=== PATIENT | female | born 1985 | race Hispanic/Latino ===

== ENCOUNTER 2016-10-23 01:16 | Inpatient (IN) | payer MEDICAID ==
[~2016-10-23] VITALS: Ht 162.6 cm; Wt 84.8 kg
[~2016-10-23 01:16] MED LIST: ONDA4TAB12 PO; ONDA8TAB10 PO
[2016-10-23] MEDS ORDERED: Sodium Chloride LOK Flush 10 mL Syringe IVFLUSH PRN ×2 (07:35→07:55)
[2016-10-23] MEDS ORDERED: Hemorrhage Kit, Post Partum XX ONE ×3 (07:35→23:00)
[2016-10-23] MEDS ORDERED: Oxytocin 10 Unit/mL Inj IM PRN ×3 (07:35→23:00)
[2016-10-23] MEDS ORDERED: Oxytocin 30 Units/500 mL LR 30 UNITS in IV Premix 1 EACH IV PRN ×3 (07:35→23:00)
[2016-10-23] MEDS ORDERED: Penicillin G K Inj 5,000,000 UNITS in Dextrose 5% Minibag Plus 100 ML IV ONE (07:35)
[2016-10-23] MEDS ORDERED: Methylergonovine 0.2 mg/mL Inj IM PRN ×3 (07:35→23:00)
[2016-10-23] MEDS ORDERED: Carboprost 250 mCg/mL Inj IM PRN ×3 (07:35→23:00)
[2016-10-23] MEDS ORDERED: Lactated Ringer's 1,000 ML IV PRN (07:52)
[2016-10-23] MEDS ORDERED: Atropine 1 mg/10 mL (Code) Syringe IVPUSH PRN ×2 (07:55→17:20)
[2016-10-23] MEDS ORDERED: Lactated Ringer's 1,000 ML IV SCH ×3 (07:55→22:56)
[2016-10-23] MEDS ORDERED: Lactated Ringer's 500 ML IV ONE ×2 (07:55→17:18)
[2016-10-23] MEDS ORDERED: EPHEDrine Sulfate 50 mg/mL Inj IVPUSH PRN ×2 (07:55→17:20)
[2016-10-23] MEDS ORDERED: Ondansetron 2 mg/mL 2 mL Inj IVPUSH PRN ×2 (07:55→17:20)
[2016-10-23] MEDS ORDERED: fentaNYL 2 mCg/mL-Bupiv 0.125% 100 ML EPIDURAL SCH ×2 (07:55→17:20)
--- NOTE | 2016-10-23 08:16 | PCM.HPOB ---
Subjective Referring Provider: Admitting Physician: Lolita Fay MD Primary Care Physician: Lolita Fay MD Attending Physician: Lolita Fay MD Chief Complaint The patient is 31-year-old who presents for labor induction at 41 weeks gestational age. History of Present History of Present Illness The patient is at 41 weeks by last US on 03/08/16 with history of previous induced uncomplicated vaginal delivery four years ago. She presents for scheduled induction of labor. She has been feeling well. She started feeling some contractions since arrival at the [facility]. Normal movements, FHR 120-150. OB History: Term Obstetrical Complications: None Past Medical History Obstetrical History: 31-year-old female at 41 weeks GA presents for labor induction. Varicella nonimmune, IgM positive 02/2016; no immunoglobulin. Reports h/o chicken pox as a child, denies known exposure recently to chicken pox. Prediabetes, elevated initial Hgb A1c 0f 5.9, 02/21,16 with diet and physical activity counseling performed. GBS carrier. Blood type O+. RPR negative, HBsAg negative, Hep C negative, HIV non-reactive. History of abnormal pap smears, (2012 ASC-H), numerous colposcopies for ASCUS. Anatomy US at 18 weeks normal except echogenic foci, resolved on follow up scan. History of dysuria during in the 2- nd trimester. Medical History: Treated for TB in 2010 for 6 months. Hx Tobacco Use: No Hx Alcohol Use: No Hx Substance Use: No Past Family History Family History Hypertension Living Arrangement: with Family Allergy Coded Allergies: No Known Allergies (Verified Allergy, Unknown, 02/26/16) Exam Vital Signs Vital signs are stable. Exam FHR 120-150 bpm Constitutional: Well-developed, Well-nourished HEENT: Atraumatic, Scleral Anicteric Lungs: Clear to Auscultation Heart: Exam Unremarkable Abdomen: Gravid, No tenderness Lymphatic: Normal: Neck Palpation of Nodes Extremities: Warm, No Edema Neurological/Psychiatric: Alert, Oriented X3, Cooperative, No Acute Distress Neuro: Grossly Neurologically Intact Additional Information Cervical exam: 4cm/85%/-1 Labs/Diagnostics Labs Pending Maternal Blood Type: O Group B Strep Results: Positive Previous Infant with GBS: Unknown Rubella: Immune Lab History: Positive for: Hx Chicken Pox OB Intrapartum Assessment/Plan Assessment A 31-year-old at 41 weeks who presents for scheduled induction of labor. At this point her cervical exam is 4cm/85%/-1. We will be starting Oxytocin and Penicillin G. Pain control has been discussed with the patient and she requested epidural at some point during labor. We anticipate routine management and vaginal delivery at this point. Attending Statement I saw patient and examined patient at admission. This is a patient had care at [facility] since first trimester. and she is a very complaint patient. She had Hba1c 5.9 but passed GCT test. Otherwise no significant abnormal finding in . She had normal weight gain in and subjectively normal size baby. Plan for pitocin for induction with favrable cervix. Will start PCN for GBS positive status. Martine De Leon DO Oct 23, 2016 08:16 Lolita Fay MD Oct 24, 2016 10:33
[2016-10-23] MEDS ORDERED: Sodium Chloride LOK Flush 10 mL Syringe IVFLUSH SCH (08:30)
[2016-10-23 09:01] LABS: Mean Corpuscular Hemoglobin 26.7 pg (27.0-35.0)
[2016-10-23] MEDS: Lactated Ringer's 1,000 ML IV PRN ×2 (09:19→21:42)
[2016-10-23] MEDS: Penicillin G K Inj 3,000,000 UNITS in IV Premix 1 EACH IV SCH ×3 (13:19→21:41)
[2016-10-23] MEDS: Lactated Ringer's 1,000 ML IV SCH ×3 (15:14→18:34)
--- NOTE | 2016-10-23 17:56 | PCM.HPANE ---
Patient Data Surgeon Admitting Provider:Lolita Fay MD Attending Provider:Lolita Fay MD Primary Care Physician:Lolita Fay MD Other Provider:[facility] Reason for Visit Term Induction TERM INDUCTION Ht/WT & BMI Body Mass Index Allergies Coded Allergies: No Known Allergies (Verified Allergy, Unknown, 02/26/16) Past Anesthesia History Anesthesia History: Denies:: Abnormal Airway, Difficult Intubation Diabetes History Hx Diabetes?: No MRSA MRSA: No Medications Hypertension Medication: No Home Meds Incl Beta Tony: No Active Scripts Ondansetron ODT 4 Mg Tab.rapdis4 Mg PO Q8H NAUSEA #10 TABLET Prov:Frances Guerra 04/14/16 Ondansetron ODT 8 Mg Tab.rapdis8 Mg PO Q4H PRN For Nausea #15 TABLET Prov:Osvaldo Low MD 02/26/16 History History of ENT Problems?: No Hx of Heart Problems?: No Hx of Respiratory Problem?: No Hx Neurologic Problems?: No Hx of GI Problems?: No Hx of Problems?: No HX of Peritoneal Dialysis: No Female Hx: Positive for:: Currently Hx Musculoskeletal Problems?: No Hx of Psycho/Social Problems?: No Hx Surgeries?: No Hx Any Other Health Problems?: No Hx Diabetes: No Hx Alcohol Use: NoHx Substance Use: No Smoking Status: Never Smoker Stop/Bang Treated for Sleep Apnea?: No Do You Have a CPAP Machine?: No Risk Assessment Category Category 1A: Patient has history of documented sleep apnea, and HAS NOT received any narcotic, sedative or anesthesia administration during this stay. Category 1B: Patient has history of documented sleep apnea, and HAS received any narcotic , sedative or anesthesia administration during this stay Category 2: Patient has SUSPECTED Obstructive Sleep Apnea, and HAS received any narcotic , sedative or anesthesia administration during this stay. Category 3: Patient has SUSPECTED Obstructive Sleep Apnea and HAS NOT received narcotic, sedative or anesthesia administration during this stay. Category 4: Outpatient in Procedural Areas with known sleep apnea or who screen positive for High Risk via the STOP/BANG questionnaire. Exam Exam General Appearance: Alert, Oriented X3, Cooperative, No Acute Distress HEENT/AIRWAY: MP 2 Lungs: Clear to Auscultation, Normal Air Movement Heart: Exam Unremarkable, Regular Rate/Rhythm, No Murmurs/Rubs/Gallops Meds/Labs/Diagnostics Admission Meds Current Medications Lactated Ringer's 1,000 ml @ 125 mls/hr Q8H IV Last administered on 10/23/16 15:14; Start 10/23/16 at 07:33 Penicillin G Potassium 9043134 units/Dextrose/ Water 100 ml @ 240 mls/hr ONCE ONCE IV Last administered on 10/23/16 09:13; Start 10/23/16 at 07:35; Stop at 07:59; Status DC Penicillin G Potassium/ Dextrose/Premix (Pfizerpen Inj/ IV Premix) 50 ml @ 100 mls/hr Q4 IV Last administered on 10/23/16 16:58; Start 10/23/16 at 12:30 Labs Test 10/23/16 08:45 White Blood Count 5.7th/mm3 (3.8-10.1) Red Blood Count 3.63mil/mm3 (3.90-5.20) Hemoglobin 9.7g/dL (12.0-15.6) Hematocrit 30.5% (35.0-46.0) Mean Corpuscular Volume 84.0fL (81-100) Mean Corpuscular Hemoglobin 26.7pg (27.0-35.0) Mean Corpuscular Hemoglobin Concent 31.8% (32.0-37.0) Red Cell Distribution Width 14.3% (12.3-15.4) Platelet Count 367bil/L (150-400) Plan Impression Patient chart reviewed, patient interviewed and anesthestic plan with risks, benefits, and alternatives discussed, and informed consent obtained. ASA Physical Status: ASA1 Normal Healthy Anesthetic Plan: Epidural Bene/Risks/Altern/Consents: Yes HP Complete Prior to Induction: Yes Jer Garcia MD Oct 23, 2016 17:56
--- NOTE | 2016-10-23 22:19 | PCM.ANEP1 ---
Post Anesthesia Phase 1 PACU Phase 1 Assessment Anesthetic Administered: Epidural Level of Alertness: Awake, talking BAILEY's with Equal Strength: Yes (epidural still in effect bilaterally) Pain: No Nausea or Vomiting: No Lungs: Clear to Auscultation, Normal Air Movement Dermatome Level: Full Sensation Jer Garcia MD Oct 23, 2016 22:19
--- NOTE | 2016-10-23 22:20 | PCM.ANEP2 ---
Post Anesthesia Evaluation ASA/CMS Post Anesthesia VS in Patient's Normal Range?: Yes Resp Stable; Airway Patent?: Yes CV Function & Hydration Stable: Yes Mental Status Recovered?: Yes Pain control Satisfactory?: Yes N/V Control Satisfactory?: Yes Jer Garcia MD Oct 23, 2016 22:20
[2016-10-23] MEDS ORDERED: LANOlin HPA 7 Gm Ointment TOPICAL PRN (23:00)
[2016-10-23] MEDS ORDERED: Benzocaine (Dermoplast) 20% 60 Gm Spray TOPICAL PRN (23:00)
[2016-10-23] MEDS ORDERED: Witch Hazel-Glycerin Pads TOPICAL PRN (23:00)
--- NOTE | 2016-10-24 03:04 | OP ---
[address] [address] OPERATIVE REPORT PATIENT: AKILAH MESA : 1985 MR#: [id number] ADMIT: 10/23/2016 JOB ID: [id number] DATE OF SURGERY: 10/23/2016 PREOPERATIVE DIAGNOSIS(ES): A 31-year-old 2, para 1-0-0-1, at 41 weeks, admitted by Dr. Fay for induction of labor, progressed to fully dilated, +3 station. POSTOPERATIVE DIAGNOSIS(ES): A 31-year-old 2, para 1-0-0-1, at 41 weeks, admitted by Dr. Fay for induction of labor, progressed to fully dilated, +3 station. PROCEDURE: Spontaneous vaginal delivery. SURGEON: Mark Sanches MD. ANESTHESIA: Epidural. ESTIMATED BLOOD LOSS: 200 cc. COMPLICATIONS: 90 seconds of shoulder dystocia. FINDINGS: *Single viable male infant, APGARS 9/9, weight of 4667 g. *Shoulder dystocia maneuvers: Mc Reis followed by suprapubic pressure, followed by Russell maneuver, followed by delivery of the posterior arm which was baby's left arm. Last maneuver released the dystocia (90 second timeframe). PROCEDURE: Patient started to push efficiently. Infant head delivered in left occiput anterior position. Nuchal cord x1 was noted. Loose enough to be reduced over the baby's head. Shoulder dystocia was observed. Patient was placed in Josefina' position. Suprapubic pressure did not release the anterior shoulder. Then, Russell maneuver did not resolve the dystocia, and this was followed by delivery of the posterior arm which was baby's left arm. This released the dystocia. Maternal pushing efforts were coached during the entire time. No traction applied at head at any time. placed over mom's chest. Cord clamped and cut. Placenta followed spontaneously. Upon inspection, it was noted to be intact with three-vessel cord marginally inserted. Placenta sent to Pathology for macrosomia. Inspection of the perineum revealed right sulcal laceration and a perineal laceration at seven o'clock position confirmed to be second-degree laceration after rectal exam. Bimanual exam of the uterus confirmed firm uterine fundus with some blood clots retrieved, included in the total estimated blood loss. The sulcal laceration was repaired as it was an extension of the second degree perineal laceration into the right vaginal sidewall. The sulcal laceration was repaired with continuous locked fashion with 2-0 Vicryl suture, and this was followed by second layer to repair the vaginal mucosa. The second-degree perineal laceration repaired in 2 layer fashion with 3-0 Vicryl suture. Good hemostasis was assured. Patient tolerated the procedure well. Sponge, needle and instrument counts were correct x2. Mother and baby are recovering in a stable condition in labor and delivery room. Dr. Sanches was present and scrubbed for the entire procedure. Epidural was adequate for the repairs. LENCHO
[2016-10-24] MEDS: oxyCODONE-Acetamin 5-325 mg Tablet PO PRN ×4 (03:15→19:34)
[2016-10-24 07:38] LABS: Mean Corpuscular Hemoglobin 26.2 pg (27.0-35.0)
[2016-10-24] MEDS: Ascorbic Acid 500 mg Tablet PO SCH ×2 (08:11→19:35)
--- NOTE | 2016-10-24 10:43 | PCM.PNOBPP ---
Subjective Date of Service Oct 24, 2016 Post : Spontaneous Vaginal Delivery Visit History The patient is a 31-year-old female at 41 weeks by last US on 03/08/16 with history of previous induced uncomplicated vaginal delivery four years ago. She presented for scheduled induction of labor. She progressed to fully dilated, +3 station after which she went through spontaneous vaginal delivery and delivered single viable male infant, Apgars 9/9, weight 4667g. There were 90 seconds of shoulder dystocia and the patient had right sulcal laceration and second degree perineal laceration at seven o'clock that were repaired. Mother and baby were recovering well after the procedure in a stable condition. Epidural was adequate for the duration of labor and laceration repair. Subjective Stable vital signs, patient is alert and oriented, recovering well, in no acute distress. Lochia: Light Pain Management: PO pain meds, Good Pain Control Gastrointestinal: No N/V, Passing Flatus Postop Activity: Ambulating Independently Labs Varicella nonimmune, IgM positive 02/2016; no immunoglobulin. Prediabetes, elevated initial Hgb A1c 0f 5.9, 02/21, with diet and physical activity counseling performed. GBS carrier. Blood type O+. RPR negative, HBsAg negative, Hep C negative, HIV non-reactive. History of abnormal pap smears, (2012 ASC-H), numerous colposcopies for ASCUS. Group B Strep Results: Positive Rubella: Immune Blood Type: O Labs Laboratory Tests 10/24/16 07:10: White Blood Count 9.4, Red Blood Count 2.71, Hemoglobin 7.1, Hematocrit 23.3, Mean Corpuscular Volume 86.0, Mean Corpuscular Hemoglobin 26.2, Mean Corpuscular Hemoglobin Concent 30.5, Red Cell Distribution Width 14.1, Platelet Count 293 Exam Vital Signs Vital Signs Vital Signs: VS reviewed, stable Exam Abdomen: Fundus firm Perineum: Laceration : Voiding without difficulty Extremities: Normal pulses, No edema Lungs: Clear to Auscultation Heart: Exam Unremarkable, Regular Rate/Rhythm General: Alert, Oriented X3, Cooperative, No Acute Distress OB Post Assessment/Plan Assessment 31-year-old female status post vaginal delivery, day1. - She is doing well and meeting all goals. - Continue Ibuprofen for pain control as needed. - We will continue routine management and will anticipate discharge tomorrow. Pain Evaluation: Adequate Pain Control Martine De Leon DO Oct 24, 2016 10:43
--- NOTE | 2016-10-24 20:14 | PCM.DIMED ---
Discharge Instructions Date of Service Oct 24, 2016 Dates of Hospitalization Oct 23, 2016 at 07:00 Diet No restrictions Activity No restrictions Call your provider Fever or Chills, Shortness of breath, Bleeding, Chest pain, Vomitting, Excessive diarrhea Patient Instructions Follow-up with PCP in: 6 weeks Ron Austin MD Oct 24, 2016 20:14
[2016-10-24] MEDS ORDERED: DOCU-41 PO (20:16)
[2016-10-24] MEDS ORDERED: IBUP-1827 PO (20:16)
[2016-10-24] MEDS ORDERED: OXYC1TAB24 PO (20:16)
[2016-10-24 20:52] VITALS: BP 103/73; PULSE 90; RESP 16
--- NOTE | 2016-10-24 21:53 | DIS ---
[address] [address] DISCHARGE SUMMARY PATIENT: AKILAH MESA : 1985 MR#: [id number] ADMIT: 10/23/2016 JOB ID: [id number] DIS: ADMITTING DIAGNOSIS: A 31-year-old, 2, para 1, at 41 weeks for post dates induction of labor. DISCHARGE DIAGNOSES: 1. A 31-year-old, 2, para 2, at 41 weeks. 2. Spontaneous vaginal delivery. The patient is a 31-year-old, 2, para 2 now, who came to Labor and Delivery for postdates induction of labor at 41 weeks. Induction of labor was successful. She underwent spontaneous vaginal delivery on October 23, 2016, and delivered a male with weight 4667 g in weight and Apgars 9 at one minute and 9 at five minutes. The baby had nuchal cords around the neck x1. There was shoulder dystocia that was delivered by suprapubic pressure, Yong maneuver and posterior arm delivery. Shoulder dystocia lasted for 90 seconds. The patient had second degree perineal laceration that was repaired with 3-0 Vicryl in two layer fashion. The patient was examined on day one, she was doing well, was stable, was ambulating, breast feeding. Vital signs were stable. The abdomen was soft and nontender. The uterine fundal incision was firm at the level of the umbilicus. The perineal stitches were intact. There was no bleeding. Post delivery laboratories came back showing hemoglobin 7.1, hematocrit 23.3, white blood cell count 9.4. The patient has not had any dizziness during ambulation, so there was no need to give her any blood. She received iron supplements. The patient was discharged home in stable condition with all discharge criteria met on day one. DISCHARGE MEDICATIONS: 1. Ferrous sulfate 325 mg p.o. b.i.d. 2. Percocet 5/325 mg p.o. t.i.d. p.r.n. 3. Motrin 600 mg p.o. t.i.d. p.r.n. 4. Colace 100 mg p.o. b.i.d. Follow-up visit in the clinic is scheduled in six weeks.
--- NOTE | 2016-10-26 14:07 | PATH ---
SURGICAL PATHOLOGY Attending Physician:Mark Sanches MD CASE STATUS: Signed Out PATIENT NAME: AKILAH MESA PID: [id number] : 1985 DATE COLLECTED:10/23/2016 00:00 SPECIMEN: Placenta CLINICAL HISTORY: PLACENTA FOR MACROSOMIA 1. PLACENTA FINAL DIAGNOSIS: 1.PLACENTA: JOHNSON PLACENTA WITH LARGE PLACENTAL SIZE (WEIGHT GREATER THAN 95TH PERCENTILE FOR 41 WEEKS GESTATION). FURCATE INSERTION OF UMBILICAL CORD. INTERVILLOUS HEMORRHAGE AND FIBRIN DEPOSITION. ICD10 CODE O43.8 GROSS DESCRIPTION: The specimen is received in formalin, labeled with the patient's name and consists of an intact placenta and includes placental disc (713 g, 21.5 x 18.5 x 3.1 cm), umbilical cord (length-46.7 cm, diameter-1.4 x 0.8 cm) and membranes. The membranes are ruptured 4.5 cm from the free edge of the placenta and are semi-translucent. The umbilical cord has a furcate insertion 5.5 cm from the edge of the placenta and contains 3 vessels. The surface is smooth and shiny with no evidence of meconium identified. The maternal surface is dark maroon with normal cotyledon formation. The placental disc is spongy and contains multiple yellow-soto fibrous areas (1.4 x 1.1 x 0.7-2.5 x 2.2 x 1.1 cm) involving approximately 10% of the disc. No nodules, masses, or lesions are identified. Section code: (A) edge of placenta with membranes; (B) umbilical cord; (C, D-E, F, G, H, I-J, K) placenta, 7 full thickness sections. 10/25/16 JM MICRO DESCRIPTION: See diagnosis. ICD-9 CODES: CPT CODES: 1: 17174 Electronically Signed Out Fanny Aguila MD [facility] Pathology [facility] [address], [place] [address] Technical component performed at [facility], [facility] [address], [place], [address]
== END 2016-10-24 21:38 | disposition home or self-care (01) | DRG 775 ==
LOC: FBC 07:00
PROVIDERS: ADMIT Obstetrics & Gynecology; ATTEND Obstetrics & Gynecology
PROC: 3E033VJ Introduction of Other Hormone into Peripheral Vein, Percutaneous Approach (ICD-10-PCS; 2016-10-23)
PROC: 10907ZC Drainage of Amniotic Fluid, Therapeutic from Products of Conception, Via Natural or Artificial Opening (ICD-10-PCS; 2016-10-23)
PROC: 10E0XZZ Delivery of Products of Conception, External Approach (ICD-10-PCS; principal; 2016-10-24)
PROC: 0KQM0ZZ Repair Perineum Muscle, Open Approach (ICD-10-PCS; 2016-10-24)
DX: O48.0 Post-term pregnancy (principal); O99.824 Streptococcus B carrier state complicating childbirth; O66.0 Obstructed labor due to shoulder dystocia; O69.81X0 Labor and delivery complicated by cord around neck, without compression, not applicable or unspecified; O70.1 Second degree perineal laceration during delivery; Z3A.41 41 weeks gestation of pregnancy; Z37.0 Single live birth